=== PATIENT | male | born 1980 | race Two or more races ===

== ENCOUNTER 2019-08-22 06:39 | Inpatient (IN) | payer OTHER ==
[~2019-08-22] VITALS: Ht 175.3 cm; Wt 90.7 kg
[2019-08-22] MEDS ORDERED: ZOLOFT50 MG PO (06:51)
[2019-08-22] MEDS ORDERED: QUETIAPINE FUM400 M1 PO (06:52)
== END 2019-08-24 10:18 | disposition home or self-care (01) | DRG 905 ==
LOC: ER 06:39 → O/R 08:47 → SURG 08:47
PROVIDERS: ADMIT Surgery; ATTEND Surgery
PROC: 0YBF0ZZ Excision of Right Knee Region, Open Approach (ICD-10-PCS; 2019-08-22)
PROC: 0JQN3ZZ Repair Right Lower Leg Subcutaneous Tissue and Fascia, Percutaneous Approach (ICD-10-PCS; 2019-08-22)
PROC: 0JX Subcutaneous Tissue and Fascia, Transfer (ICD-10-PCS; principal; 2019-08-22 12:00)
DX: S81.021A Laceration with foreign body, right knee, initial encounter (principal); Y92.89 Other specified places as the place of occurrence of the external cause; Y93.39 Activity, other involving climbing, rappelling and jumping off

== ENCOUNTER 2019-09-06 12:46 | Inpatient (IN) | payer OTHER | END 2019-09-21 13:23 | disposition home or self-care (01) | DRG 572 | LOC: ER 12:46 → SURG 12:50 → SURH 15:54 | PROVIDERS: ADMIT Surgery | PROC: 8E0ZXY6 Isolation (ICD-10-PCS; 2019-09-06) | PROC: BQ37ZZZ Magnetic Resonance Imaging (MRI) of Right Knee (ICD-10-PCS; 2019-09-07) | PROC: 0JBN0ZZ Excision of Right Lower Leg Subcutaneous Tissue and Fascia, Open Approach (ICD-10-PCS; principal; 2019-09-08) | PROC: 0S9C0ZZ Drainage of Right Knee Joint, Open Approach (ICD-10-PCS; 2019-09-08) | DX: L03.115 Cellulitis of right lower limb (principal); T79.8XXS Other early complications of trauma, sequela; B95.61 Methicillin susceptible Staphylococcus aureus infection as the cause of diseases classified elsewhere ==